=== PATIENT | male | born 1995 | race Caucasian/White ===

== ENCOUNTER 2019-04-05 16:07 | Emergency (ER) | payer OTHER ==
[2019-04-05 16:39] VITALS: BP 118/62
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
== END 2019-04-05 17:33 | disposition home health service (06) ==
LOC: UCCORT 16:07
DX: S00.93XA Contusion of unspecified part of head, initial encounter (principal); S06.0X0A Concussion without loss of consciousness, initial encounter; Z88.0 Allergy status to penicillin; W18.30XA Fall on same level, unspecified, initial encounter; Y92.9 Unspecified place or not applicable
CPT/HCPCS: 99202; G0463